=== PATIENT | male | born 1970 | race Caucasian/White ===

== ENCOUNTER 2019-05-03 17:21 | Emergency (ER) | payer BC, OTHER ==
[2019-05-03 18:51] VITALS: BP 164/88
--- NOTE | 2019-05-03 19:38 | UC ---
Back Pain HPI - HPI Summary HPI Summary: Per cafe associate: "Tuesday pt woke up feeling pain in back between the shoulder blades. . Has not improved since then. At times it radiates from between shoulders down his left arm. Does not recall anything that would set off the back pain. Many years ago had a back injury at work with occasional flare up(that was his lower back). 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 " -here w/ his -sx started on 04/30 - he does recall that he fell asleep the dy prior in a chair while sitting up and his neck was hyperflexed when he awaoke. pain is in left upper trap and extends down to left medial scapula area. palpation reproducss the pain. feels the knots. feels confiemnt that it is muscular. has not ahd relief w/ occas 400-600 mgs BRISEYDA. -pain reprodcues with flexion of neck as well. - History of Current Complaint Chief Complaint: UCBackPain Stated Complaint: BACK PAIN Time Seen by Provider: 05/03/19 18:32 Pain Intensity: 7 - Allergies/Home Medications Allergies/Adverse Reactions: Allergies Allergy/AdvReac Type Severity Reaction Status Date / Time No Known Allergies Allergy Verified 05/03/19 18:51 Home Medications: Home Medications Acetaminophen [Tylenol Extra Strength] 1,000 mg PO DAILY PRN 05/03/19 [History Confirmed 05/03/19] PMH/Surg Hx/FS Hx/Imm Hx Previously Healthy: Yes - Surgical History Surgical History: None - Social History Alcohol Use: Rare Substance Use Type: None Smoking Status (MU): Never Smoked Tobacco Review of Systems All Other Systems Reviewed And Are Negative: Yes Constitutional: Positive: Negative Skin: Positive: Negative. Negative: Rash Eyes: Positive: Negative ENT: Positive: Negative Respiratory: Positive: Negative. Negative: Shortness Of Breath, Cough Cardiovascular: Positive: Negative. Negative: Palpitations, Chest Pain Gastrointestinal: Positive: Negative. Negative: Vomiting, Diarrhea, Nausea Genitourinary: Positive: Negative Motor: Positive: Other - see above Neurovascular: Positive: Negative Musculoskeletal: Positive: Other: - see above Neurological: Positive: Negative Psychological: Positive: Negative Is Patient Immunocompromised?: No Physical Exam Appearance: Well-Appearing, No Pain Distress, Well-Nourished - very pleasant. good historians. Vital Signs: Initial Vital Signs Temp 98.8 F 05/03/19 18:43 Pulse 81 05/03/19 18:43 Resp 18 05/03/19 18:43 BP 164/88 05/03/19 18:43 Pulse Ox 98 05/03/19 18:43 Vital Signs Reviewed: Yes Eye Exam: Normal ENT Exam: Normal Neck exam: Normal Neck: Positive: Supple, Nontender, No Lymphadenopathy, Other: - no spinal tenderness. + mod-large muscle spasm that extend from left upper trap to medial scapula. palpation reproduces the pain. Respiratory Exam: Normal Respiratory: Positive: Lungs clear, Normal breath sounds, No respiratory distress, No accessory muscle use Cardiovascular Exam: Normal Cardiovascular: Positive: RRR Abdominal Exam: Normal Bowel Sounds: Positive: Present Musculoskeletal: Positive: Other: - see above. FROM left arm. sensation intact Neurological Exam: Normal Psychological Exam: Normal Skin Exam: Normal Back Pain Course/Dx - Course Course Of Treatment: Left trap muscle spasm -medical massage. shoulder exercise. BRISEYDA for short course 600-800mgs tid and flexiril -they understood me well and are agreeabel w/ plan. - Differential Dx/Diagnosis Differential Diagnosis/HQI/PQRI: Herniated Disc, Strain, Sprain Provider Diagnosis: Trapezius muscle spasm Discharge ED - Sign-Out/Discharge Documenting (check all that apply): Patient Departure All imaging exams completed and their final reports reviewed: No Studies - Discharge Plan Condition: Stable Disposition: HOME Prescriptions: Cyclobenzaprine TAB* [Flexeril 10 MG TAB*] 10 mg PO BID PRN 7 Days #7 tab PRN Reason: Pain - Severe Patient Education Materials: Muscle Spasm (ED) Referrals: Arik Archuleta PA [Primary Care Provider] - 6 Days Additional Instructions: You can take 600-800mgs Ibuprofen every 8 hrs as needed, use biofreeze or icy hot patches. I showed you some gentle shoulder stretches. rest. Do not take the muscle relaxant within 10 [address] of [address] or using heavy machinery. Medical massage can be beneficial. Consider PT if symptoms worsen or persist. -make sure to follow up on the elevated blood pressure next week as well - Billing Disposition and Condition Condition: STABLE Disposition: Home
== END 2019-05-03 19:57 | disposition home or self-care (01) ==
LOC: UCCORT 17:21
DX: M62.838 Other muscle spasm (principal)
CPT/HCPCS: 99212; G0463